=== PATIENT | female | born 1970 | race Caucasian/White ===

== ENCOUNTER → 2021-02-27 | Outpatient (CLI) | payer OTHER ==
[~2021-02-27] MED LIST: DILTIAZEM 24HR120 MG PO; DILTIAZEM ER120 M1 PO; ELIQUIS5 MG PO; LASIX40 MG PO; LEVOXYL50 MCG PO; LOPRESSOR 25 MG25 MG PO; MULTAQ 400 MG400 MG PO; OMEPRAZOLE20 MG PO; POTASSIUM CHLO20 ME1 PO; PREDNISONE20 MG PO; SOTALOL80 MG PO
[2021-02-27 08:32] LABS: HEMOGLOBIN 12.7 gm/dl (12.3-15.3); RED BLOOD COUNT 6.02 M/UL (4.00-5.10); WHITE BLOOD COUNT 11.2 K/UL (4.5-11.0)
[2021-02-27 08:46] LABS: BUN/CREATININE RATIO 26 (0-10)
== END ==
LOC: CATH 02-24 07:30
PROVIDERS: Internal Medicine Cardiovascular Disease
DX: I48.19 Other persistent atrial fibrillation (principal); I48.92 Unspecified atrial flutter; I10 Essential (primary) hypertension; E66.01 Morbid (severe) obesity due to excess calories; I48.91 Unspecified atrial fibrillation; I50.32 Chronic diastolic (congestive) heart failure; E03.9 Hypothyroidism, unspecified; I27.20 Pulmonary hypertension, unspecified; Z79.899 Other long term (current) drug therapy; Z90.49 Acquired absence of other specified parts of digestive tract; Z20.822 Contact with and (suspected) exposure to COVID-19; Z68.42 Body mass index [BMI] 45.0-49.9, adult
CPT/HCPCS: 36415; 80048; 85027; 92960; 93005; J0461; J1200; J1742; J2250; J2310; J2405; J3010; J7040